=== PATIENT | male | born 1970 | race Native Hawaiian/Other Pacific Islander ===

== ENCOUNTER 2017-05-24 09:08 | Outpatient (CLI) | payer OTHER ==
[~2017-05-24 09:08] MED LIST: MELOXICAM7.5 MG OR; META800T35 PO
== END 2017-05-24 19:34 | disposition home or self-care (01) ==
LOC: US 09:08
DX: R10.13 Epigastric pain (principal)

== ENCOUNTER 2017-05-26 08:59 | Day surgery (SDC) | payer OTHER | END 2017-05-26 15:12 | disposition home or self-care (01) | LOC: OR 08:59 | PROC: 0DB38ZZ Excision of Lower Esophagus, Via Natural or Artificial Opening Endoscopic (ICD-10-PCS; principal; 2017-05-26) | PROC: 0DB88ZZ Excision of Small Intestine, Via Natural or Artificial Opening Endoscopic (ICD-10-PCS; 2017-05-26) | PROC: 0DB68ZZ Excision of Stomach, Via Natural or Artificial Opening Endoscopic (ICD-10-PCS; 2017-05-26) | DX: K29.50 Unspecified chronic gastritis without bleeding (principal); R10.13 Epigastric pain; K21.9 Gastro-esophageal reflux disease without esophagitis; R14.3 Flatulence; R14.0 Abdominal distension (gaseous); R49.0 Dysphonia | CPT/HCPCS: J2001; J2250; J2704; J3010 ==

== ENCOUNTER 2017-12-08 08:43 | Day surgery (SDC) | payer OTHER | END 2017-12-08 13:15 | disposition home or self-care (01) | LOC: OR 08:43 | PROC: 0DBP8ZZ Excision of Rectum, Via Natural or Artificial Opening Endoscopic (ICD-10-PCS; principal; 2017-12-08) | PROC: 0DBN8ZZ Excision of Sigmoid Colon, Via Natural or Artificial Opening Endoscopic (ICD-10-PCS; 2017-12-08) | DX: K63.5 Polyp of colon (principal); K62.1 Rectal polyp; K64.8 Other hemorrhoids; K64.4 Residual hemorrhoidal skin tags; Z86.010 Personal history of colon polyps | CPT/HCPCS: J2001; J2704 ==

== ENCOUNTER 2018-08-03 13:46 | Outpatient (CLI) | payer OTHER | END 2018-08-03 21:21 | disposition home or self-care (01) | LOC: RAD 13:46 | DX: M25.521 Pain in right elbow (principal) ==

== ENCOUNTER 2019-05-12 10:54 | Outpatient (CLI) | payer OTHER | END 2019-05-12 23:45 | disposition home or self-care (01) | LOC: MRI 10:54 | DX: M25.562 Pain in left knee (principal) ==

== ENCOUNTER 2019-12-11 10:03 | Outpatient (CLI) | payer OTHER | END 2019-12-11 19:15 | disposition home or self-care (01) | LOC: RAD 10:03 | DX: M51.9 Unspecified thoracic, thoracolumbar and lumbosacral intervertebral disc disorder (principal) ==

== ENCOUNTER 2020-02-28 10:33 | Outpatient (CLI) | payer OTHER | END 2020-02-28 20:06 | disposition home or self-care (01) | LOC: MRI 10:33 | DX: M47.818 Spondylosis without myelopathy or radiculopathy, sacral and sacrococcygeal region (principal) ==

== ENCOUNTER 2020-09-13 10:11 | Outpatient (CLI) | payer OTHER | END 2020-09-13 20:03 | disposition home or self-care (01) | LOC: LAB 10:11 | PROVIDERS: ATTEND Internal Medicine | DX: Z20.828 Contact with and (suspected) exposure to other viral communicable diseases (principal) | CPT/HCPCS: 87635; G2023; U0003 ==

== ENCOUNTER 2020-09-24 16:29 | Outpatient (CLI) | payer OTHER | END 2020-09-24 18:53 | disposition home or self-care (01) | LOC: RAD 16:29 | PROVIDERS: ATTEND Internal Medicine | DX: J40 Bronchitis, not specified as acute or chronic (principal) ==

== ENCOUNTER 2020-09-25 15:01 | Outpatient (CLI) | payer OTHER ==
[~2020-09-25] VITALS: Ht 177.8 cm; Wt 93.0 kg
[2020-09-25 16:00] LABS: PLATELET COUNT 215 K/uL (142-355)
[2020-09-25 16:13] LABS: POTASSIUM 3.7 mmol/L (3.6-5.2)
[2020-09-25 17:11] VITALS: BP 126/82; TEMP 98.5
== END 2020-09-25 19:59 | disposition home or self-care (01) ==
LOC: INF 15:01
PROVIDERS: ATTEND Family Medicine
DX: U07.1 COVID-19 (principal)
CPT/HCPCS: 36591; 80053; 85027; 96365; Q0239

== ENCOUNTER 2021-04-25 13:33 | Outpatient (CLI) | payer OTHER | END 2021-04-25 19:11 | disposition home or self-care (01) | LOC: LAB 13:33 | PROVIDERS: ATTEND Nurse Practitioner Family | DX: R05 Cough (principal); Z11.52 Encounter for screening for COVID-19 | CPT/HCPCS: 87502; 87635; U0003 ==

== ENCOUNTER 2021-04-26 11:34 | Outpatient (CLI) | payer OTHER ==
[2021-04-26 12:02] LABS: PLATELET COUNT 186 K/uL (142-355)
[2021-04-26 12:13] LABS: POTASSIUM 4.1 mmol/L (3.6-5.2)
== END 2021-04-26 20:24 | disposition home or self-care (01) ==
LOC: LABW 11:34
PROVIDERS: ATTEND Nurse Practitioner Primary Care
DX: R50.9 Fever, unspecified (principal); T14.8XXA Other injury of unspecified body region, initial encounter
CPT/HCPCS: 36415; 80053; 85027; 86618; 86757

== ENCOUNTER → 2021-09-25 | Outpatient (CLI) | payer OTHER | LOC: INF 10:49 | PROVIDERS: ATTEND Internal Medicine | DX: Z23 Encounter for immunization (principal) | CPT/HCPCS: 90471 ==

== ENCOUNTER 2021-10-22 12:57 | Outpatient (CLI) | payer OTHER ==
[~2021-10-22] VITALS: Ht 177.8 cm; Wt 95.3 kg
== END 2021-10-22 19:04 | disposition home or self-care (01) ==
LOC: INF 12:57
PROVIDERS: ATTEND Family Medicine
DX: U07.1 COVID-19 (principal); Z23 Encounter for immunization
CPT/HCPCS: 96365; M0244

== ENCOUNTER 2021-12-29 15:38 | Outpatient (CLI) | payer OTHER ==
[2021-12-29 15:53] LABS: PLATELET COUNT 224 K/uL (142-355)
[2021-12-29 16:04] LABS: POTASSIUM 3.7 mmol/L (3.6-5.2)
== END 2021-12-29 19:05 | disposition home or self-care (01) ==
LOC: LABW 15:38
PROVIDERS: ATTEND Internal Medicine
DX: R50.9 Fever, unspecified (principal)
CPT/HCPCS: 36415; 80053; 81000; 85027

== ENCOUNTER 2022-09-21 15:17 | Outpatient (CLI) | payer OTHER | END 2022-09-21 19:00 | disposition home or self-care (01) | LOC: LAB 15:17 | PROVIDERS: ATTEND Nurse Practitioner Family | DX: R19.7 Diarrhea, unspecified (principal) | CPT/HCPCS: 87328; 87329 ==

== ENCOUNTER 2022-09-30 11:48 | Outpatient (CLI) | payer OTHER | END 2022-09-30 19:00 | disposition home or self-care (01) | LOC: MRI 11:48 | PROVIDERS: ATTEND Orthopaedic Surgery | DX: S83.282A Other tear of lateral meniscus, current injury, left knee, initial encounter (principal); M25.562 Pain in left knee; Y92.89 Other specified places as the place of occurrence of the external cause ==

== ENCOUNTER 2023-01-06 13:23 | Outpatient (CLI) | payer OTHER | END 2023-01-06 17:00 | disposition home or self-care (01) | LOC: MRI 13:23 | PROVIDERS: ATTEND Physical Medicine & Rehabilitation | DX: M54.16 Radiculopathy, lumbar region (principal) ==

== ENCOUNTER 2023-04-01 06:19 | Outpatient (CLI) | payer OTHER ==
[2023-04-01 08:32] LABS: POTASSIUM 3.8 mmol/L (3.6-5.2)
== END 2023-04-01 18:56 | disposition home or self-care (01) ==
LOC: LABW 06:19
PROVIDERS: ATTEND Nurse Practitioner Primary Care
DX: E66.9 Obesity, unspecified (principal)
CPT/HCPCS: 36415; 80053; 80061; 83036; 84443